=== PATIENT | male | born 1965 | race Caucasian/White ===

== ENCOUNTER 2021-04-17 07:59 | Outpatient (CLI) | payer OTHER ==
[2021-04-17 09:02] VITALS: BP 151/92
--- NOTE | 2021-04-17 09:02 | SLEEP CARE CONSULTATION ---
Information from patient questionnaire entered by Ayde Alvarez. I have reviewed and concur with the information entered by Ayde Alvarez. This document represents the service I personally performed and the decisions made by me, Lauren Hoang ARNP. History of Present Illness Service Date and Time: 04/17/2021 0759 Reason for Visit: New patient Chief Complaint: reports: Insomnia, Unrefreshed sleep, Snoring (occasional), Excessive daytime sleepiness, Observed pauses in breathing, Fatigue, Frequent awakenings at night Date of Onset: 1 year Usual bedtime: 10 pm Time it takes to fall asleep: varies Snores at night: Yes Observed to quit breathing while asleep: Yes Sleeps alone due to snoring: No Number of times waking at night: 4-5 Reasons for waking at night: reports: Gasping for air (not often), Pain, Bathroom Toss, Turn, or Twitch while sleeping: Yes Recalls having dreams: Yes Usually gets out of bed at: 6:30 am Feels refreshed in the morning: No Morning headache: No Sleepy or fatigued during the day: Yes Ever fallen asleep while driving: No (no drowsy driving) Takes day naps: No Dreams during day naps: No Prior sleep studies: No Additional HPI information: I had the pleasure of seeing DEVIN JONES today regarding the possibility of him having a sleep disorder. His current complaints are excessive daytime sleepiness, fatigue, frequent night awakenings, insomnia, observed pauses in breathing and unrefreshed sleep. He has been having some sleep apnea for a while now. He states he snores occasionally, especially when laying supine. His has seen him have pauses in breathing, especially after a surgery. He has woken up feeling like he was not breathing and gasping for air. He states this does not happen often. He has high blood pressure that is being hard to control on 4 different types of blood pressure medication. He denies a family history of sleep disorders. 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 Patient is and lives in [place]. Have you smoked in the past 12 months: No Alcohol use: No Caffeine use: No Family History Family history of sleep disordered breathing: No Allergies and Home Medications Drug allergies reviewed: Yes (NKDA) Home medication list reviewed: Yes Allergy and home medication list: Amlodipine 10 mg daily Prilosec 40 mg daily Triamterine/HTCZ 12.5 mg Clonidine patch 0.1 mg Aspirin 81 mg daily Wellbutrin 300 mg Prazosin 4 mg nightly Trazadone 150 mg nightly Gabapentin 900 mg nightly Review of Systems Weight gain over past 5 years: 50 Cardiovascular: reports: high blood pressure Gastrointestinal: reports: heartburn Psychiatric: reports: Attention Deficit Hyperactivity, anxiety, depression, mood disorder (PTSD) Ear/Nose/Throat: reports: wisdom teeth removed. denies: tonsillectomy Musculoskeletal: reports: joint pain, back pain Physical Exam Blood Pressure: 151/92 (on BP 4 meds) Cuff size: wrist Heart Rate: 94 O2 Saturation: 95 Height: 6 ft 1 in Weight: 220 lb Body Mass Index: 29.0 BMI Classification: Overweight Neck circumference: 16.75 (inches) Mouth and throat: narrow oropharynx Soft palate: long Hard palate: arched Uvula visualization: 50% Mallampati Class II Tongue: enlarged in size with teeth ruiz on lateral edges Tonsils: small Neck: normal w/o lymphadenopathy or thyromegaly Heart: regular rate and rhythm Lungs: clear bilaterally Impression and Plan 1. Suspected Obstructive Sleep Apnea-Hypopnea Syndrome, as suggested by a history of loud and irregular snoring, observed cessation of breath while asleep, gasping or choking in sleep, frequent awakening during the night, unrefreshed sleep, cognitive impairment, and excessive daytime sleepiness. Narrow oropharynx and obesity are common predisposing factors for obstructive sleep apnea-hypopnea syndrome. I recommend proceeding to polysomnography to confirm the diagnosis and to assess severity. If the patient has significant sleep disordered breathing, a manual CPAP titration study will also be performed to find the optimal treatment pressure. I informed the patient of what the sleep studies involve and after some discussion, obtained agreement to proceed. The pathophysiology of obstructive sleep apnea-hypopnea syndrome was discussed with the patient and health risks of cardiovascular and cerebrovascular disease if not treated. AASM brochure for obstructive sleep apnea-hypopnea syndrome given and reviewed. Risks of drowsy driving discussed in detail and patient advised to avoid long distance driving and to pull tab dealer at the first sign of drowsiness. Patient agreed to plan. * Schedule polysomnography +- manual CPAP titration study and return in 1-2 weeks after the study to discuss result and initiate therapy. * Avoid long distance driving or driving when feeling sleepy. * Avoid sedative and muscle relaxant around bedtime. * Attempt to lose weight. * Review instructions provided by trained office staff on how to prepare for the sleep study. * Return for follow-up after sleep study completed. Counseling Topics: Weight loss health impact Visit Type: In Office Time Spent with Patient (minutes): 30 Provider Statement: I spent 100% of the Face to Face Visit with the patient with greater than 50% spent counseling the patient and coordination of care.
== END 2021-04-17 08:00 | disposition home or self-care (01) ==
LOC: SC 07:59
PROVIDERS: ATTEND Nurse Practitioner Family
DX: G47.10 Hypersomnia, unspecified (principal); G47.8 Other sleep disorders; R06.81 Apnea, not elsewhere classified; R41.89 Other symptoms and signs involving cognitive functions and awareness; R06.83 Snoring
CPT/HCPCS: 99203; 99212

== ENCOUNTER 2021-04-17 09:10 | Outpatient (CLI) | payer OTHER | END 2021-04-17 09:11 | disposition home or self-care (01) | LOC: SC 09:10 | PROVIDERS: ATTEND Nurse Practitioner Family | DX: G47.33 Obstructive sleep apnea (adult) (pediatric) (principal); R09.02 Hypoxemia | CPT/HCPCS: 95806 ==

== ENCOUNTER 2021-04-30 07:50 | Outpatient (CLI) | payer OTHER ==
--- NOTE | 2021-04-30 08:17 | SLEEP CARE CONSULTATION ---
Information from patient questionnaire entered by Ayde Alvarez. I have reviewed and concur with the information entered by Ayde Alvarez. This document represents the service I personally performed and the decisions made by , Lauren Hoang ARNP. History of Present Illness Service Date and Time: 04/30/2021 0750 Initial [place] Sleepiness Scale score: 3 (in 2020) Current [place] Sleepiness Scale score: 3 Additional HPI information: DEVIN JONES returns for follow up and results of the recently performed home sleep study. I explained the pathophysiology behind obstructive sleep apnea. We then spent quite a bit of time discussing different treatment options. For mild obstructive sleep apnea, surgery and oral appliance are alternatives to nasal CPAP therapy but in moderate or severe cases, nasal CPAP is the most effective and reliable treatment. Because apnea is primarily in supine position, then positional management therapy could be effective. Methods discussed such as positioning with pillows, using a T-shirt with tennis balls in the back, and shown commercial products that have a pillow format on back to prevent supine sleep. I reviewed the impact of weight changes on sleep apnea and strongly recommended losing weight. After some discussion, the patient opted to go with the nasal CPAP therapy. Nasal autoCPAP set at 4-15 cmH20 will be ordered with rationale explained. A manual titration study will be ordered if unable to find optimal pressure with office adjustments. I explained how CPAP machine works with sample devices Respironics Dreamstation and ResArcaris [id number] and what to expect when using the machine. Using CPAP every night in order to get used to it was emphasized. Patient advised to put CPAP mask on before getting into bed so as not to fall asleep without CPAP. To assist acclimation to CPAP use, it could also be used for a short time during day while reading or watching TV. The patient was instructed to call the CPAP supplier to discuss any mechanical problem that may occur. If the mask given is uncomfortable or is difficult to keep on through the night even with adjustment, contact the CPAP supplier as many will replace with another mask style if notified before 30 days. If snoring or perceives is not getting enough air or too much air from the machine, notify this office. [facility] patient education PAP tips reviewed and given to patient. Patient was cautioned about risks of drowsy driving until sleepiness symptoms resolve. Sleep Study - Results Type of Sleep Study: Home sleep study Prior sleep studies: No Polysomnography/Home Sleep Study results: Physician Impression: The quality of the study is good. The length of the study is adequate (> 240 minutes). Please also see the tabulated and graphic data. 1. Obstructive Sleep Apnea-Hypopnea (ICD-10 G47.33), mild, with an AHI of 9.2/hr and josh SaO2 of 86%. During the study, the patient had 6 apneas (6 obstructive, 0 central, 0 mixed) and 79 hypopneas. The longest episode lasted 72.0 seconds. The respiratory events occurred almost exclusively during supine sleep (supine AHI was 23.3 and non-supine, 3.78). 2. Hypoxemia (ICD-10 R09.02), mild, with the lowest oxygen saturation of 86 % and 67.8 minutes with SaO2 under 90%. Baseline oxygen saturation was normal (Average oxygen saturation was 91%). Allergies and Home Medications Home medication list reviewed: Yes (no changes) Review of Systems Review of systems same as previous: Yes (no changes) Physical Exam Heart Rate: 90 O2 Saturation: 96 Height: 6 ft 1 in Weight: 225 lb Body Mass Index: 29.7 BMI Classification: Overweight Impression and Plan 1. Obstructive Sleep Apnea-Hypopnea Syndrome, mild, with lowest oxygen saturation of 86%. Obviously this is the cause of the patients symptoms of unrefreshed sleep, and excessive daytime sleepiness. Positive pressure therapy could benefit hypertension, attention deficit, anxiety, depression, mood disorder and gastric reflux. As mentioned above, the patient will be started on nasal autoCPAP therapy with pressure set at 4-15 cmH2O. A manual titration study will be completed if unable to find optimal treatment pressure with office adjustments. Compliance guidelines also reviewed. A copy of compliance guidelines will be given for reference at check out. Because the apnea is more severe supine, I instructed to avoid sleeping supine using pillow positioning until able to start CPAP use. 2. Hypoxemia, mild, with the lowest oxygen saturation of 86 % and 67.8 minutes with SaO2 under 90%. His baseline oxygen saturation was normal with an average oxygen saturation of 91%. * Nasal auto CPAP therapy, pressure at 4-15 cm H2O. * Attempt to lose weight. * Avoid alcohol consumption near bedtime. * Avoid supine sleep until using CPAP. * The patient is again cautioned about driving until sleepiness completely resolves. * Return one month after CPAP obtained. I will assess response to therapy and compliance at that time. Counseling Topics: Weight loss health impact Visit Type: In Office Time Spent with Patient (minutes): 20 Provider Statement: I spent 100% of the Face to Face Visit with the patient with greater than 50% spent counseling the patient and coordination of care.
== END 2021-04-30 07:51 | disposition home or self-care (01) ==
LOC: SC 07:50
PROVIDERS: ATTEND Nurse Practitioner Family
DX: G47.33 Obstructive sleep apnea (adult) (pediatric) (principal); R09.02 Hypoxemia
CPT/HCPCS: 99212; 99213

== ENCOUNTER 2021-08-07 10:37 | Outpatient (CLI) | payer OTHER ==
[2021-08-07 17:56] LABS: BASOPHILS % (AUTO) 0.4 %; EOSINOPHILS # (AUTO) 0.2 10^3/uL (0.0-0.7); EOSINOPHILS % (AUTO) 2.2 %; HGB - HEMOGLOBIN 17.1 g/dL (14.0-18.0); LYMPHOCYTES % (AUTO) 14.1 %; MEAN CORPUSCULAR HEMOGLOBIN 33.9 pg (27.0-31.0); MEAN CORPUSCULAR HGB CONC 34.2 g/dL (32.0-36.0); MEAN PLATELET VOLUME 9.7 fL (7.4-11.4); MONOCYTES # (AUTO) 0.5 10^3/uL (0.0-1.0); MONOCYTES % (AUTO) 7.9 %; NEUTROPHILS # (AUTO) 5.1 10^3/uL (1.5-6.6); NEUTROPHILS % (AUTO) 75.3 %; PLT - PLATELET COUNT 236 10^3/uL (130-450); RED BLOOD COUNT 5.05 10^6/uL (4.70-6.10); RED CELL DISTRIBUTION WIDTH 12.3 % (12.0-15.0); WHITE BLOOD COUNT 6.8 x10^3/uL (4.8-10.8)
[2021-08-07 18:26] LABS: ALBUMIN 4.1 g/dL (3.2-5.5); ALBUMIN/GLOBULIN RATIO 1.3 (1.0-2.2); BILIRUBIN,TOTAL 0.6 mg/dL (0.2-1.0); CALCIUM 9.4 mg/dL (8.5-10.3); CREATININE 1.1 mg/dL (0.6-1.2); POTASSIUM 4.4 mmol/L (3.5-5.0); TOTAL PROTEIN 7.2 g/dL (6.7-8.2)
== END 2021-08-07 10:38 | disposition home or self-care (01) ==
LOC: LAB.N 10:37
PROVIDERS: ATTEND Internal Medicine
DX: R97.20 Elevated prostate specific antigen [PSA] (principal); Z79.899 Other long term (current) drug therapy
CPT/HCPCS: 36415; 80053; 84153; 85025

== ENCOUNTER 2022-03-27 12:27 | Outpatient (CLI) | payer OTHER | END 2022-03-27 12:28 | disposition critical access hospital (66) | LOC: EMS 12:27 | DX: R07.9 Chest pain, unspecified (principal); I10 Essential (primary) hypertension | CPT/HCPCS: A0425; A0427 ==

== ENCOUNTER 2022-03-27 12:52 | Emergency (ER) | payer OTHER ==
[2022-03-27] MEDS ORDERED: NITROGLYCERIN SL 0.4 MG TABLET SL STA (13:08)
[2022-03-27] MEDS ORDERED: METOPROLOL 5 MG/5 ML VIAL IVP STA (13:09)
[2022-03-27] MEDS ORDERED: ASPIRIN CHEW 81 MG TABLET PO STA (13:09)
[2022-03-27 13:28] LABS: BASOPHILS % (AUTO) 0.7 %; EOSINOPHILS # (AUTO) 0.1 10^3/uL (0.0-0.7); EOSINOPHILS % (AUTO) 2.8 %; HCT - HEMATOCRIT 47.6 % (42.0-52.0); HGB - HEMOGLOBIN 16.8 g/dL (14.0-18.0); LYMPHOCYTES # (AUTO) 0.8 10^3/uL (1.5-3.5); LYMPHOCYTES % (AUTO) 16.4 %; MEAN CORPUSCULAR HEMOGLOBIN 33.8 pg (27.0-31.0); MEAN CORPUSCULAR HGB CONC 35.3 g/dL (32.0-36.0); MEAN CORPUSCULAR VOLUME 95.8 fL (80.0-94.0); MEAN PLATELET VOLUME 8.8 fL (7.4-11.4); MONOCYTES # (AUTO) 0.5 10^3/uL (0.0-1.0); MONOCYTES % (AUTO) 10.9 %; NEUTROPHILS # (AUTO) 3.2 10^3/uL (1.5-6.6); PLT - PLATELET COUNT 216 10^3/uL (130-450); RED BLOOD COUNT 4.97 10^6/uL (4.70-6.10); RED CELL DISTRIBUTION WIDTH 13.1 % (12.0-15.0); WHITE BLOOD COUNT 4.6 x10^3/uL (4.8-10.8)
[2022-03-27 13:46] LABS: ALBUMIN 3.7 g/dL (3.2-5.5); CALCIUM 9.4 mg/dL (8.5-10.3); CREATININE 1.2 mg/dL (0.6-1.2); MAGNESIUM 2.1 mg/dL (1.7-2.8); POTASSIUM 4.1 mmol/L (3.5-5.0); TOTAL PROTEIN 7.3 g/dL (6.7-8.2)
--- NOTE | 2022-03-27 14:07 | XRAY Report ---
PROCEDURE: Chest 1 View X-Ray INDICATIONS: Chest Pain TECHNIQUE: One view of the chest was acquired. COMPARISON: None. FINDINGS: Surgical changes and devices: None. Lungs and pleura: No pleural effusions or pneumothorax. Lungs are clear. Mediastinum: Mediastinal contours appear normal. Heart size is normal. Bones and chest wall: No suspicious bony lesions. Overlying soft tissues appear unremarkable. IMPRESSION: Portable chest within normal limits for age. Reviewed by: Ephraim Wray MD on 03/27/2022 1:06 PM TONNY Approved by: Ephraim Wray MD on 03/27/2022 1:06 PM TONNY Station ID: [id number]
[2022-03-27] MEDS ORDERED: KETOROLAC 15 MG/ML VIAL IVP STA (14:27)
--- NOTE | 2022-03-27 15:19 | CT Report ---
PROCEDURE: ANGIO CHEST W/WO INDICATIONS: HTN and chest pain, eval aorta/dissection CONTRAST: IV CONTRAST: Optiray 320 ml: 80 PO CONTRAST: *NO PO CONTRAST TECHNIQUE: After the administration of intravenous contrast, 2 mm axial images were acquired from the pulmonary apices to the posterior costophrenic angles during the arterial phase. In addition, 1 mm lung kernel and 5 mm soft tissue kernel reconstructions were performed. 3-dimensional coronal oblique maximum int ensity projection (MIP) reformats, 8 mm axial MIP, and 5 mm coronal and sagittal MPR reformats were t hen performed through the thorax. For radiation dose reduction, the following was used: automated exp osure control, adjustment of mA and/or kV according to patient size. COMPARISON: Correlation is made with chest radiograph, 03/27/2022. FINDINGS: Image quality: Excellent. Pulmonary arteries: Pulmonary arteries are normal in size, and demonstrate no intraluminal filling d efects to suggest central pulmonary embolism. Lungs and pleura: Lungs are clear. No pleural effusions or pneumothorax. Central and peripheral ai rways are patent. Mediastinum: Heart size is normal, without pericardial effusion. No mediastinal or hilar adenopathy . Thoracic aorta is normal in caliber and enhancement. Esophagus is normal in caliber, without hiat al hernia. Bones and chest wall: No suspicious bony lesions. Ribs and thoracic spine appear intact throughout. No axillary or supraclavicular adenopathy. The thyroid is normal in size and there are no incident al findings. Abdomen: A nonobstructing left-sided kidney stone is seen, as on series 6 image 120 measuring 6 cm. T he visualized portions of the upper abdominal structures are otherwise within normal limits. IMPRESSION: Negative for pulmonary motion Clear lungs. Incidental note is made of: Nonobstructing 6 mm left-sided kidney stone Reviewed by: Ephraim Wray MD on 03/27/2022 2:18 PM TONNY Approved by: Ephraim Wray MD on 03/27/2022 2:18 PM TONNY Station ID: [id number]
[2022-03-27] MEDS ORDERED: LOSARTAN 50 MG TABLET PO STA (15:55)
[2022-03-27] MEDS ORDERED: METOPROLOL TARTRATE 50 MG TABLET PO STA (16:00)
--- NOTE | 2022-03-27 16:14 | ED Physician Documentation ---
PD HPI CHEST PAIN - Stated complaint Stated Complaint: CP - Chief complaint Chief Complaint: Cardiac - History obtained from History obtained from: Patient - History of Present Illness Timing - onset: Yesterday Timing - duration: Days (2) Timing - details: Gradual onset, Still present, Waxing and waning. No: Intermittant Quality: Pressure, Tightness. No: Sharp Location: Substernal, Left chest Radiation: Back Improved by: No: Rest Worsened by: Movement. No: Inspiration, Eating, Palpation Associated symptoms: Feeling faint / dizzy, Other (anxious about it. Noted his BP to be elevated consistently since yesterday with systolic over 200 most of it. Typically only about 150-160 systolic, and has been having increased doses HTN meds the past month.). No: Shortness of air, Nausea, Palpitations Similar symptoms before: No diagnosis (had chest pain episode with heart eval and stress test in [facility] 4-5 years ago that was normal. On HTN meds with recent increase in Losartan from 25 to 50 mg, and propranolol from 75 to 100 mg. BP still elevated.) Recently seen: Clinic (went to walk in clinic and referred to ER.) Review of Systems Constitutional: denies: Fever, Chills Nose: denies: Rhinorrhea / runny nose, Congestion Throat: denies: Sore throat Cardiac: reports: Chest pain / pressure. denies: Palpitations, Pedal edema, Calf pain Respiratory: reports: Dyspnea. denies: Cough, Wheezing GI: denies: Abdominal Pain, Nausea, Vomiting, Diarrhea Musculoskeletal: denies: Extremity swelling Neurologic: reports: Headache (mild). denies: Focal weakness, Numbness, Near syncope, Altered mental status PD PAST MEDICAL HISTORY - Past Medical History Past Medical History: Yes Cardiovascular: Hypertension Respiratory: None Neuro: None Endocrine/Autoimmune: None GI: GERD : None HEENT: None Psych: Post traumatic stress disorder Musculoskeletal: None Derm: None - Past Surgical History Past Surgical History: Yes Ortho: Other - Present Medications Home Medications: Ambulatory Orders Medication Instructions Recorded Confirmed Losartan Potassium [Cozaar] 100 mg PO DAILY #30 tablet 03/27/22 Metoprolol Tartrate [Lopressor] 50 mg PO BID #60 tablet 03/27/22 - Allergies Allergies/Adverse Reactions: Allergies Allergy/AdvReac Type Severity Reaction Status Date / Time No Known Drug Allergies Allergy Verified 03/27/22 12:56 - Social History Does the pt smoke?: No Smoking Status: Never smoker - Immunizations Immunizations are current?: Yes PD ED PE NORMAL - Vitals Vital signs reviewed: Yes - General General: Alert and oriented X 3, No acute distress (mildly anxious but pleasant and good historian. ), Well developed/nourished - Neck Neck: Supple, no meningeal sign, No adenopathy - Cardiac Cardiac: RRR, No murmur - Respiratory Respiratory: Clear bilaterally, Other (no chestwall tenderness. ) - Abdomen Abdomen: Normal bowel sounds, Soft, Non tender - Derm Derm: Normal color, Warm and dry - Extremities Extremities: Normal ROM s pain, No edema, No calf tenderness / cord - Neuro Neuro: Alert and oriented X 3, No motor deficit, Normal speech Results - Vitals Vitals: Oxygen O2 Source Room air - EKG (time done) 12:55 Rate: Rate (enter#) (70) Rhythm: NSR [place]: Normal Intervals: Normal CT QRS: Normal Ischemia: Normal ST segments, Q waves (inferior leads without ST changes. ). No: ST elevation c/w ischemia, ST depression - Labs Labs: Laboratory Tests 03/27/22 03/27/22 03/27/22 13:22 13:22 13:22 WBC 4.6 L RBC 4.97 Hgb 16.8 Hct 47.6 MCV 95.8 H MCH 33.8 H MCHC 35.3 RDW 13.1 Plt Count 216 MPV 8.8 Neut # (Auto) 3.2 Lymph # (Auto) 0.8 L [place] # (Auto) 0.5 Eos # (Auto) 0.1 Baso # (Auto) 0.0 Absolute Nucleated RBC 0.00 Nucleated RBC % 0.0 D-Dimer < 200.0 L Sodium 137 Potassium 4.1 Chloride 101 Carbon Dioxide 26 Anion Gap 10.0 BUN 18 Creatinine 1.2 Estimated GFR (MDRD) 63 L Glucose 92 Calcium 9.4 Magnesium 2.1 Total Bilirubin 1.0 AST 31 ALT 58 Alkaline Phosphatase 30 L Troponin I High Sens B-Natriuretic Peptide Total Protein 7.3 Albumin 3.7 Globulin 3.6 Albumin/Globulin Ratio 1.0 Lipase 36 03/27/22 03/27/22 13:22 13:22 WBC RBC Hgb Hct MCV MCH MCHC RDW Plt Count MPV Neut # (Auto) Lymph # (Auto) [place] # (Auto) Eos # (Auto) Baso # (Auto) Absolute Nucleated RBC Nucleated RBC % D-Dimer Sodium Potassium Chloride Carbon Dioxide Anion Gap BUN Creatinine Estimated GFR (MDRD) Glucose Calcium Magnesium Total Bilirubin AST ALT Alkaline Phosphatase Troponin I High Sens 10.4 B-Natriuretic Peptide 85 Total Protein Albumin Globulin Albumin/Globulin Ratio Lipase - Rads (name of study) aorta chest CT Radiology: Prelim report reviewed (PE, normal thoracic aorta. No other acute process. ), See rad report PD MEDICAL DECISION MAKING - ED course Complexity details: reviewed results (normal labs. With 2 days of chest pain and HTN, would expect to see some Trop elevation if ischemic.Consider vascular with recent marked HTN and chest pain into back. D-Dimer normal so not PE. But did chest CTA to eval aorta. ), re-evaluated patient, considered differential, d/w patient Departure - Departure Disposition: Home, Self Care Clinical Impression: Elevated blood pressure reading, Chest discomfort Condition: Stable Record reviewed to determine appropriate education?: Yes Instructions: ED Hypertension Conf Out Of Control Follow-Up: [facility] [Provider Group] [facility] [place] [Provider Group] Prescriptions: Losartan Potassium [Cozaar] 100 mg PO DAILY #30 tablet Metoprolol Tartrate [Lopressor] 50 mg PO BID #60 tablet Comments: We can change your propranolol to metoprolol at a similar dosing and see if it works a little better on your blood pressure control in combination with increasing your losartan from 50 to 100 mg daily. Stay well-hydrated but low-salt diet. No signs of heart failure, heart attack, blood clots, aortic problems or lung process as a cause of your chest discomfort. Unclear why there was just an effect of the blood pressure or other possibilities such as heartburn or musculoskeletal. See how well it feels with better blood pressure control. Again the least there were no signs of significant heart lung causes for the discomfort. Follow-up with primary care in the next week or 2. You could try the [facility] primary care in [place] as there are some new providers there now or [facility]. If unable to get a primary care appointment, you could alternatively follow-up with the walk-in clinic in the next week or so if your blood pressures not better controlled with the above medicines. I transmitted your prescriptions to [facility] pharmacy in [place]. Discharge Date/Time: 03/27/22 16:24
[2022-03-27 16:16] VITALS: BP 186/110
== END 2022-03-27 16:24 | disposition home or self-care (01) ==
LOC: EDUNIT# → ED 12:52
DX: R07.9 Chest pain, unspecified (principal); I10 Essential (primary) hypertension
CPT/HCPCS: 36415; 71045; 71275; 80053; 83690; 83735; 83880; 84484; 85025; 85379; 93005; 96374; 96375; 99284; A9270; Q9967

== ENCOUNTER 2022-05-17 08:37 | Outpatient (CLI) | payer OTHER ==
[2022-05-17 09:08] LABS: CREATININE,URINE 94.8 mg/dL; MICROALBUM/CREATININE RATIO,UR 4.2 ug/mg (<30.0); MICROALBUMIN,URINE 0.4 mg/dL (0-300.0)
[2022-05-17 09:14] LABS: ALBUMIN 4.8 g/dL (3.2-5.5); ALBUMIN/GLOBULIN RATIO 1.3 (1.0-2.2); BILIRUBIN,TOTAL 1.4 mg/dL (0.2-1.0); CALCIUM 10.3 mg/dL (8.5-10.3); CREATININE 1.5 mg/dL (0.6-1.2); POTASSIUM 4.6 mmol/L (3.5-5.0); TOTAL PROTEIN 8.4 g/dL (6.7-8.2)
[2022-05-17 09:30] LABS: THYROID STIMULATING HORMONE 2.77 uIU/mL (0.34-5.60)
== END 2022-05-17 08:38 | disposition home or self-care (01) ==
LOC: LAB 08:37
PROVIDERS: ATTEND Physician Assistant
DX: I10 Essential (primary) hypertension (principal)
CPT/HCPCS: 36415; 80053; 82043; 82088; 82570; 83970; 84244; 84443

== ENCOUNTER 2022-05-19 11:59 | Outpatient (CLI) | payer OTHER | END 2022-05-19 12:00 | disposition home or self-care (01) | LOC: LAB 11:59 | PROVIDERS: ATTEND Physician Assistant | DX: I10 Essential (primary) hypertension (principal) | CPT/HCPCS: 83835 ==

== ENCOUNTER 2022-11-20 10:04 | Emergency (ER) | payer OTHER ==
[2022-11-20 10:32] VITALS: BP 165/97
--- NOTE | 2022-11-20 11:22 | XRAY Report ---
PROCEDURE: Foot 3 View RT INDICATIONS: Trauma TECHNIQUE: 3 views of the foot were acquired. COMPARISON: None. FINDINGS: Bones: Minimally displaced comminuted intra-articular fracture of the first proximal phalangeal head extending into the first interphalangeal joint. Osseous structures are otherwise intact. No suspiciou s bony lesions. Soft tissues: Soft tissue edema is seen in the great toe. IMPRESSION: Minimally displaced comminuted intra-articular fracture of the first proximal phalangeal head. Reviewed by: Emile Jeffries MD on 11/20/2022 11:21 AM PDT Approved by: Emile Jeffries MD on 11/20/2022 11:21 AM PDT Station ID: [id number]
[2022-11-20] MEDS ORDERED: oxyCODONE 5 MG TABLET PO STA (11:51)
--- NOTE | 2022-11-20 11:53 | ED Physician Documentation ---
PD HPI LOWER EXT INJURY - Stated complaint Stated Complaint: RT FOOT INJURY - Chief complaint Chief Complaint: Trauma Ext - History obtained from History obtained from: Patient - Additional information Additional information: Patient is a 57-year-old male presenting for evaluation of right great toe pain after accidentally kicking a space heater yesterday while playing with his dog. He reports bruising and swelling to the area. He does not take a blood thinner. He has been able to ambulate although it is painful. He denies pain elsewhere. Review of Systems Constitutional: denies: Fever Cardiac: denies: Chest pain / pressure Respiratory: denies: Dyspnea GI: denies: Abdominal Pain Musculoskeletal: reports: Extremity pain Neurologic: denies: Headache PD PAST MEDICAL HISTORY - Past Medical History Cardiovascular: Hypertension Respiratory: None Neuro: None Endocrine/Autoimmune: None GI: GERD : None HEENT: None Psych: Post traumatic stress disorder Musculoskeletal: None Derm: None - Past Surgical History Past Surgical History: Yes Ortho: Other - Present Medications Home Medications: Ambulatory Orders Medication Instructions Recorded Confirmed Losartan Potassium [Cozaar] 100 mg PO DAILY #30 tablet 03/27/22 Metoprolol Tartrate [Lopressor] 50 mg PO BID #60 tablet 03/27/22 Oxycodone HCl/Acetaminophen 1 each PO Q6H PRN #14 tablet 11/20/22 [Percocet 5-325 mg Tablet] - Allergies Allergies/Adverse Reactions: Allergies Allergy/AdvReac Type Severity Reaction Status Date / Time No Known Drug Allergies Allergy Verified 11/20/22 10:33 - Social History Does the pt smoke?: No Smoking Status: Never smoker - Immunizations Immunizations are current?: Yes PD ED PE NORMAL - General General: Alert and oriented X 3, No acute distress, Well developed/nourished - HEENT HEENT: Atraumatic - Neck Neck: Supple, no meningeal sign - Cardiac Cardiac: Strong equal pulses - Respiratory Respiratory: No respiratory distress - Extremities Extremities: Other (Bruising and tenderness to right great toe, Mild swelling across the dorsum of the foot; Pedal pulses intact, able to wiggle all digits, sensation grossly intact; No tenderness to the ankle more proximally in the right lower extremity) Results - Vitals Vitals: Vital Signs - 24 hr 11/20/22 10:30 Temperature 36.8 C Heart Rate 58 L Respiratory 16 Rate Blood Pressure 165/97 H O2 Saturation 97 Oxygen O2 Source Room air PD Medical Decision Making - ED course Complexity details: reviewed results, d/w patient ED course: Patient presenting for evaluation of right great toe pain after accidentally kicking a space heater.He has bruising, swelling and tenderness on exam. An x- ray was obtained which I reviewed which demonstrates a fracture to the First proximal phalangeal head. We have placed the patient into a splint with lilly tape and a postop shoe. Patient declines need for crutches.He understands the need to continue with supportive care and is advised on need for close follow-up with his PCP. Departure - Departure Disposition: Home, Self Care Clinical Impression: Toe fracture, right Qualifiers: Encounter type: initial encounter Toe: great toe Fracture type: closed Phalanx: proximal Fracture alignment: nondisplaced Qualified Code(s): S92.414A - Nondisplaced fracture of proximal phalanx of right great toe, initial encounter for closed fracture Condition: Stable Instructions: ED Fx Toe Closed Follow-Up: Alexia Jones PA-C [Primary Care Provider] - Prescriptions: Oxycodone HCl/Acetaminophen [Percocet 5-325 mg Tablet] 1 each PO Q6H PRN #14 tablet PRN Reason: pain Comments: Your x-ray shows that you have a broken bone in your right great toe. We have applied a lilly tape for support And also given you a postop shoe which may be more comfortable to wear. I have sent a prescription for narcotic pain medication to [facility] in [place]. Please have close follow-up with your primary care doctor. Please make sure to elevate the foot as this will help wi th swelling and may help with your pain. I am prescribing a short course of narcotic pain medication for you. These are potentially dangerous and addictive medications that should be used carefully. These medications may constipate you. Take an [id number]-jvvrauc stool softener (docusate) twice daily with plenty of water while taking these medications. If you go 24 hours without a bowel movement, take [id number]-wjivima miralax, per package instructions. Do not drink or drive while taking these medications. If you received narcotic or sedating medications while in the emergency department, do not drive for 24 hours. Store this medication in a safe, secure place and out of reach of children. It is a violation of federal law to give or sell this medication to another person or to use in a manner other than prescribed. The ED will not refill narcotic prescriptions, including prescriptions lost or stolen. To dispose of unwanted medications: 1. [facility] at [address] in [place] has a medication drop box. They accept prescription medications (in pill form) Tuesday through Tuesday 9:00 a.m. to 5:00 p.m. 2. The [facility] [employer] accepts prescription medications (in pill form only) for disposal year round. Call for more information. 3. Contact the [facility] for the next [facility] sponsored prescription drug collection event. , [phone], or [phone]; Note that many narcotic pain relievers also contain Tylenol/acetaminophen. Please ensure that your total dose of acetaminophen from all sources does not exceed 3 g (3000 mg) per day. IMPRESSION: Minimally displaced comminuted intra-articular fracture of the first proximal phalangeal head. Forms: Activity restrictions Discharge Date/Time: 11/20/22 12:04
== END 2022-11-20 12:04 | disposition home or self-care (01) ==
LOC: ED 10:04
DX: S92.414A Nondisplaced fracture of proximal phalanx of right great toe, initial encounter for closed fracture (principal); W22.8XXA Striking against or struck by other objects, initial encounter; Y93.89 Activity, other specified; I10 Essential (primary) hypertension
CPT/HCPCS: 73630; 99283; A9270

== ENCOUNTER 2023-01-20 07:27 | Outpatient (CLI) | payer OTHER ==
--- NOTE | 2023-01-20 16:20 | Ultrasound Report ---
PROCEDURE: Arterial Visceral Complete INDICATIONS: RESISTANT HYPERTENSIVE DISORDER TECHNIQUE: Real time scanning was performed of both kidneys, followed by Color and pulsed Doppler in terrogation of the renal vessels. COMPARISON: None FINDINGS: Aortic peak systolic velocity: 37 cm/s. Right side: Caruso-scale imaging: Kidney is 12 cm long; renal cortical thickness is 2.0 cm. No hydronephrosis. N o nephrolithiasis. Renal cortex is normal in echogenicity. No suspicious solid renal masses. Proximal renal artery peak systolic velocity: 128 cm/s. Mid renal artery peak systolic velocity: 136 cm/s. Distal renal artery peak systolic velocity: 119 cm/s. Renal vein: Patent, without thrombus. Peak renal/aortic ratio (RAR): 1.77. Left side: Caruso-scale imaging: Kidney is 13 cm long; renal cortical thickness is 1.6 cm. No hydronephrosis. N o nephrolithiasis. Renal cortex is normal in echogenicity. No suspicious solid renal masses. Proximal renal artery peak systolic velocity: 134 cm/s. Mid-renal artery peak systolic velocity: 128 cm/s. Distal renal artery peak systolic velocity: 95 cm/s. Renal vein: Patent, without thrombus. Peak renal/aortic ratio (RAR): 1.74. IMPRESSION: No hemodynamically significant stenosis. Reviewed by: Miguel Alberto on 01/20/2023 3:18 PM TONNY Approved by: Miguel Alberto on 01/20/2023 3:18 PM TONNY Station ID: [id number]
== END 2023-01-20 07:28 | disposition home or self-care (01) ==
LOC: DI 07:27
PROVIDERS: ATTEND Physician Assistant
DX: I10 Essential (primary) hypertension (principal)
CPT/HCPCS: 93975

== ENCOUNTER 2023-05-03 07:45 | Outpatient (CLI) | payer OTHER ==
[2023-05-03] MEDS ORDERED: ALBUTEROL 1 PUFF INH STA (09:19)
== END 2023-05-03 07:46 | disposition home or self-care (01) ==
LOC: RT 07:45
PROVIDERS: ATTEND Physician Assistant
DX: R06.2 Wheezing (principal); R06.09 Other forms of dyspnea
CPT/HCPCS: 94060; 94729